=== PATIENT | male | born 1945 | race Hispanic/Latino ===

== ENCOUNTER 2021-02-25 16:12 | Inpatient (IN) | payer OTHER ==
[~2021-02-25] VITALS: Ht 172.7 cm; Wt 111.4 kg
[2021-02-25 17:02] LABS: BASOPHILS % (AUTO) 0.4 % (0.0-5.0); EOSINOPHILS % (AUTO) 1.6 % (0.0-8.0); HEMATOCRIT 34.9 % (42-54); LYMPHOCYTES % (AUTO) 13.8 % (21.0-51.0); MEAN CORPUSCULAR HEMOGLOBIN 29.1 pg (27.0-33.0); MEAN CORPUSCULAR HGB CONC 31.2 g/dL (32.0-36.0); MEAN CORPUSCULAR VOLUME 93.1 fL (79-99); MONOCYTES % (AUTO) 9.2 % (3.0-13.0); NEUTROPHILS % (AUTO) 74.2 % (40.0-77.0); PLATELET COUNT (AUTO) 183 K/uL (130-400); RED BLOOD CELL COUNT(AUTO) 3.75 MIL/uL (4.50-6.20); RED CELL DISTRIBUTION WIDTH 15.5 % (11.0-15.5); WHITE BLOOD COUNT (AUTO) 9.5 K/uL (4.8-10.8)
[2021-02-25 17:16] LABS: CREATININE 1.1 mg/dL (0.5-1.5); POTASSIUM 3.8 mmol/L (3.5-5.1)
[2021-02-25 17:18] LABS: INR 1.06 (0.85-1.15); PROTHROMBIN TIME 11.5 SEC (9.6-11.6)
[2021-02-25 17:20] LABS: PARTIAL THROMBOPLASTIN TIME 26.5 SEC (26.3-35.5)
[2021-02-25 17:25] LABS: ALBUMIN 3.2 g/dL (3.5-5.0); BILIRUBIN,TOTAL 0.4 mg/dL (0.2-1.0); MAGNESIUM 1.8 mg/dL (1.80-2.40); TOTAL PROTEIN, SERUM 6.9 g/dL (6.0-8.3)
[2021-02-25] MEDS ORDERED: DILTIAZEM 50MG VIAL IV SCH (17:30)
[2021-02-25 17:32] LABS: B-TYPE NATRIURETIC PEPTIDE 24 pg/mL (0-100)
[2021-02-25] MEDS ORDERED: FERS325 PO (19:54)
[2021-02-25] MEDS ORDERED: LOSA25TA41 PO (19:54)
[2021-02-25] MEDS ORDERED: PRED5DRO25 OS (19:54)
[2021-02-25] MEDS ORDERED: LOPE2TAB26 PO (19:54)
[2021-02-25] MEDS ORDERED: ASPI-1197 PO (19:54)
[2021-02-25] MEDS ORDERED: MIRT45TA83 PO (19:54)
[2021-02-25] MEDS ORDERED: GLIP10TA9 PO (19:54)
[2021-02-25] MEDS ORDERED: TAMS-1 PO (19:54)
[2021-02-25] MEDS ORDERED: OMEP40CA21 PO (19:54)
[2021-02-25] MEDS ORDERED: METO-408 PO (19:54)
[2021-02-25] MEDS ORDERED: PREG150C46 PO (19:54)
[2021-02-25] MEDS ORDERED: MELA1TAB28 PO (19:54)
[2021-02-25] MEDS ORDERED: KETO.5OS OS (19:54)
[2021-02-25] MEDS ORDERED: OXYB5TAB15 PO (19:54)
[2021-02-25] MEDS ORDERED: TORS20TA4 PO (19:54)
[2021-02-25] MEDS ORDERED: METF-446 PO (19:54)
[2021-02-25] MEDS ORDERED: ROSU40TA21 PO (19:54)
[2021-02-25] MEDS ORDERED: FINA5TAB41 PO (19:54)
[2021-02-25] MEDS ORDERED: POTASSIUM CHLORIDE 10% ELIXIR 20 MEQ/15 ML UDCUP PO PRN (21:30)
[2021-02-25] MEDS ORDERED: POTASSIUM CHLORIDE 20MEQ/100ML 100 ML IV PRN (21:30)
[2021-02-25] MEDS ORDERED: LIDOCAINE HCL-MPF 1% 2ML VIAL IV PRN (21:30)
[2021-02-25] MEDS ORDERED: ONDANSETRON 4MG INJ IV PRN (21:30)
[2021-02-25 23:21] LABS: POTASSIUM 3.8 mmol/L (3.5-5.1)
[2021-02-25] MEDS ORDERED: TRAZODONE HCL 50 MG TAB PO SCH (23:30)
[2021-02-26] VITALS (8 sets, daily range): BP systolic 98–146; BP diastolic 62–91
[2021-02-26] MEDS: INSULIN HUMULIN R 100 UNIT/ML 3ML SQ SCH ×4 (07:30→20:36)
[2021-02-26 08:22] LABS: BASOPHILS % (AUTO) 0.7 % (0.0-5.0); EOSINOPHILS % (AUTO) 1.7 % (0.0-8.0); HEMATOCRIT 36.7 % (42-54); MEAN CORPUSCULAR HEMOGLOBIN 29.2 pg (27.0-33.0); MEAN CORPUSCULAR HGB CONC 31.3 g/dL (32.0-36.0); MEAN CORPUSCULAR VOLUME 93.1 fL (79-99); MONOCYTES % (AUTO) 8.9 % (3.0-13.0); NEUTROPHILS % (AUTO) 71.1 % (40.0-77.0); PLATELET COUNT (AUTO) 191 K/uL (130-400); RED BLOOD CELL COUNT(AUTO) 3.94 MIL/uL (4.50-6.20); RED CELL DISTRIBUTION WIDTH 15.7 % (11.0-15.5); WHITE BLOOD COUNT (AUTO) 8.4 K/uL (4.8-10.8)
[2021-02-26] MEDS ORDERED: FAMOTIDINE 20MG TAB PO SCH (09:00)
[2021-02-26] MEDS ORDERED: LOSARTAN 25 MG TABLET PO SCH (09:00)
[2021-02-26] MEDS: PREDNISOLONE 1% DROPS OS SCH ×4 (09:00→20:54)
[2021-02-26] MEDS: FUROSEMIDE 40MG VIAL IVP SCH ×2 (09:11→20:35)
[2021-02-26] MEDS: PANTOPRAZOLE 40 MG TAB DR PO SCH (09:12)
[2021-02-26] MEDS: OXYBUTYNIN CHLORIDE 5 MG TABLET PO SCH ×3 (09:12→20:36)
[2021-02-26] MEDS: FERROUS SULFATE 325 MG TABLET.DR PO SCH (09:12)
[2021-02-26] MEDS: METOPROLOL TARTRATE 25 MG TAB PO SCH ×2 (09:12→20:36)
[2021-02-26] MEDS: ASPIRIN 81MG CHEW TAB PO SCH (09:12)
[2021-02-26] MEDS: ENOXAPARIN SODIUM 40 MG/0.4 ML SYRINGE SQ SCH (09:13)
[2021-02-26] MEDS: FINASTERIDE 5 MG TABLET PO SCH (09:13)
[2021-02-26] MEDS: TAMSULOSIN HCL 0.4 MG CAP.ER.24H PO SCH (09:13)
[2021-02-26 09:33] LABS: HEMOGLOBIN A1C 7.4 % (4.0-6.0)
[2021-02-26 09:59] LABS: MAGNESIUM 2.2 mg/dL (1.80-2.40); PHOSPHORUS 2.8 mg/dL (2.5-4.9); THYROID STIMULATING HORMONE 1.67 uIU/mL (0.36-3.74)
[2021-02-26] MEDS ORDERED: DILTIAZEM 125 MG/25 ML INJ 125 MG in 0.9%NACL 100ML 100 ML IV PRN (10:30)
[2021-02-26] MEDS ORDERED: DILTIAZEM 25MG INJ IVP PRN ×2 (10:30→11:30)
[2021-02-26] MEDS ORDERED: PHARMACY COMMUNICATION MISC SCH (11:30)
[2021-02-26] MEDS: DILTIAZEM 125 MG/25 ML INJ 125 MG in 0.9%NACL 100ML 100 ML IV PRN (12:00)
[2021-02-26] MEDS: PREGABALIN 100 MG CAPSULE PO SCH ×2 (12:15→20:36)
[2021-02-26 12:56] LABS: CREATININE 1.1 mg/dL (0.5-1.5); MAGNESIUM 1.9 mg/dL (1.80-2.40); POTASSIUM 3.7 mmol/L (3.5-5.1)
[2021-02-26 20:22] LABS: POTASSIUM 3.5 mmol/L (3.5-5.1)
[2021-02-26] MEDS: MIRTAZAPINE 15 MG TABLET PO SCH (20:35)
[2021-02-26] MEDS: PYRIDOXINE PO SCH (20:36)
[2021-02-26] MEDS: ATORVASTATIN 40 MG TABLET PO SCH (20:36)
[2021-02-26] MEDS: MELATONIN PO SCH (20:36)
[2021-02-27] VITALS (7 sets, daily range): BP systolic 92–146; BP diastolic 53–75
[2021-02-27] MEDS: PREGABALIN 75 MG CAPSULE PO SCH ×2 (01:00→21:43)
[2021-02-27 04:46] LABS: BASOPHILS % (AUTO) 0.5 % (0.0-5.0); HEMATOCRIT 34.8 % (42-54); LYMPHOCYTES % (AUTO) 14.8 % (21.0-51.0); MEAN CORPUSCULAR HEMOGLOBIN 28.7 pg (27.0-33.0); MEAN CORPUSCULAR VOLUME 92.6 fL (79-99); MONOCYTES % (AUTO) 9.2 % (3.0-13.0); NEUTROPHILS % (AUTO) 73.7 % (40.0-77.0); PLATELET COUNT (AUTO) 194 K/uL (130-400); RED BLOOD CELL COUNT(AUTO) 3.76 MIL/uL (4.50-6.20); RED CELL DISTRIBUTION WIDTH 15.9 % (11.0-15.5); WHITE BLOOD COUNT (AUTO) 10.7 K/uL (4.8-10.8)
[2021-02-27 06:24] LABS: CREATININE 1.1 mg/dL (0.5-1.5); MAGNESIUM 1.8 mg/dL (1.80-2.40); POTASSIUM 3.4 mmol/L (3.5-5.1)
[2021-02-27] MEDS: INSULIN HUMULIN R 100 UNIT/ML 3ML SQ SCH ×4 (06:30→20:40)
[2021-02-27] MEDS: KCL 20 MEQ ERTAB PO PRN ×2 (06:44→12:26)
[2021-02-27] MEDS: ENOXAPARIN SODIUM 40 MG/0.4 ML SYRINGE SQ SCH (08:32)
[2021-02-27] MEDS: PREGABALIN 100 MG CAPSULE PO SCH ×2 (08:36→20:29)
[2021-02-27] MEDS: OXYBUTYNIN CHLORIDE 5 MG TABLET PO SCH ×3 (08:36→20:30)
[2021-02-27] MEDS: METOPROLOL TARTRATE 25 MG TAB PO SCH ×2 (08:36→20:30)
[2021-02-27] MEDS: FINASTERIDE 5 MG TABLET PO SCH (08:36)
[2021-02-27] MEDS: ASPIRIN 81MG CHEW TAB PO SCH (08:36)
[2021-02-27] MEDS: PANTOPRAZOLE 40 MG TAB DR PO SCH (08:36)
[2021-02-27] MEDS: TAMSULOSIN HCL 0.4 MG CAP.ER.24H PO SCH (08:36)
[2021-02-27] MEDS: FUROSEMIDE 40MG VIAL IVP SCH (08:37)
[2021-02-27] MEDS: PREDNISOLONE 1% DROPS OS SCH ×4 (09:00→21:00)
[2021-02-27] MEDS ORDERED: MAGNESIUM 2GM PREMIX 50ML 50 ML IV SCH (09:00)
[2021-02-27] MEDS: DILTIAZEM 125 MG/25 ML INJ 125 MG in 0.9%NACL 100ML 100 ML IV PRN (09:19)
[2021-02-27] MEDS ORDERED: LIDOCAINE 5% TOPICAL PATCH TP SCH (11:00)
[2021-02-27] MEDS: 0.9%NACL 1000ML 1,000 ML IV SCH ×3 (12:19→17:27)
[2021-02-27] MEDS ORDERED: DILTIAZEM 180MG SR CAP PO SCH (13:00)
[2021-02-27] MEDS: DILTIAZEM 180MG SR CAP PO SCH (13:24)
[2021-02-27] MEDS: PYRIDOXINE PO SCH (20:29)
[2021-02-27] MEDS: MELATONIN PO SCH (20:29)
[2021-02-27] MEDS: ATORVASTATIN 40 MG TABLET PO SCH (20:29)
[2021-02-27] MEDS: MIRTAZAPINE 15 MG TABLET PO SCH (20:29)
[2021-02-28] VITALS (7 sets, daily range): BP systolic 108–132; BP diastolic 54–79
[2021-02-28] MEDS: ATORVASTATIN 40 MG TABLET PO SCH ×2 (01:00→21:08)
[2021-02-28] MEDS: OXYBUTYNIN CHLORIDE 5 MG TABLET PO SCH ×5 (01:00→21:08)
[2021-02-28] MEDS: METOPROLOL TARTRATE 25 MG TAB PO SCH ×3 (01:00→21:08)
[2021-02-28] MEDS: MIRTAZAPINE 15 MG TABLET PO SCH ×2 (01:00→21:10)
[2021-02-28] MEDS: INSULIN HUMULIN R 100 UNIT/ML 3ML SQ SCH ×4 (06:13→21:00)
[2021-02-28] MEDS: DILTIAZEM 180MG SR CAP PO SCH (07:54)
[2021-02-28 08:22] LABS: BILIRUBIN,DIRECT 0.2 mg/dL (0.0-0.3); BILIRUBIN,TOTAL 0.5 mg/dL (0.2-1.0); TOTAL PROTEIN, SERUM 6.6 g/dL (6.0-8.3)
[2021-02-28 08:32] LABS: MAGNESIUM 2.1 mg/dL (1.80-2.40); POTASSIUM 3.3 mmol/L (3.5-5.1)
[2021-02-28] MEDS: PREDNISOLONE 1% DROPS OS SCH ×5 (09:00→21:11)
[2021-02-28] MEDS: FERROUS SULFATE 325 MG TABLET.DR PO SCH (09:00)
[2021-02-28] MEDS: REGADENOSON 0.4 MG/5 ML PF SYG IVP SCH ×2 (10:30→12:28)
[2021-02-28] MEDS: PREGABALIN 75 MG CAPSULE PO SCH ×2 (12:56→21:09)
[2021-02-28] MEDS: ASPIRIN 81MG CHEW TAB PO SCH (12:56)
[2021-02-28] MEDS: FINASTERIDE 5 MG TABLET PO SCH (12:57)
[2021-02-28] MEDS: TAMSULOSIN HCL 0.4 MG CAP.ER.24H PO SCH (12:57)
[2021-02-28] MEDS: PANTOPRAZOLE 40 MG TAB DR PO SCH (12:57)
[2021-02-28] MEDS: ENOXAPARIN SODIUM 40 MG/0.4 ML SYRINGE SQ SCH (12:58)
[2021-02-28] MEDS: MELATONIN PO SCH (21:00)
[2021-02-28] MEDS: PYRIDOXINE PO SCH (21:00)
[2021-02-28] MEDS: KCL 20 MEQ ERTAB PO PRN ×2 (21:09→23:31)
[2021-03-01] VITALS: BP 119/60
[2021-03-01] MEDS: KCL 20 MEQ ERTAB PO PRN (01:31)
[2021-03-01 04:00] VITALS: BP 122/69
[2021-03-01 04:34] LABS: CREATININE 1.3 mg/dL (0.5-1.5)
[2021-03-01] MEDS: INSULIN HUMULIN R 100 UNIT/ML 3ML SQ SCH ×3 (06:36→16:30)
[2021-03-01 08:41] VITALS: BP 137/62
[2021-03-01] MEDS ORDERED: APIXABAN 5 MG TABLET PO SCH (09:00)
[2021-03-01] MEDS: PREDNISOLONE 1% DROPS OS SCH ×3 (09:00→17:00)
[2021-03-01] MEDS: PANTOPRAZOLE 40 MG TAB DR PO SCH (09:01)
[2021-03-01] MEDS: ASPIRIN 81MG CHEW TAB PO SCH (09:01)
[2021-03-01] MEDS: FINASTERIDE 5 MG TABLET PO SCH (09:01)
[2021-03-01] MEDS: METOPROLOL TARTRATE 25 MG TAB PO SCH (09:02)
[2021-03-01] MEDS: DILTIAZEM 180MG SR CAP PO SCH (09:02)
[2021-03-01] MEDS: TAMSULOSIN HCL 0.4 MG CAP.ER.24H PO SCH (09:03)
[2021-03-01] MEDS: PREGABALIN 75 MG CAPSULE PO SCH (09:03)
[2021-03-01] MEDS: OXYBUTYNIN CHLORIDE 5 MG TABLET PO SCH ×2 (09:08→14:16)
[2021-03-01 12:26] VITALS: BP 114/61
[2021-03-01 16:45] VITALS: BP 131/59
[2021-03-01] MEDS ORDERED: DILT180C63 PO (17:21)
[2021-03-01] MEDS ORDERED: METO-391 PO (17:21)
[2021-03-01] MEDS ORDERED: APIX5TAB PO (17:21)
== END 2021-03-01 20:50 | disposition home or self-care (01) | DRG 309 ==
LOC: EDH 16:12 → EDHIP 21:19 → 4BH 02-26 08:20 → 4CH 02-26 17:17
PROVIDERS: ADMIT Internal Medicine; ATTEND Internal Medicine
DX: I48.92 Unspecified atrial flutter (principal); D68.59 Other primary thrombophilia; E11.42 Type 2 diabetes mellitus with diabetic polyneuropathy; I10 Essential (primary) hypertension; E78.5 Hyperlipidemia, unspecified; I48.91 Unspecified atrial fibrillation; E87.6 Hypokalemia; I25.10 Atherosclerotic heart disease of native coronary artery without angina pectoris; I25.2 Old myocardial infarction; Z87.891 Personal history of nicotine dependence; Z95.5 Presence of coronary angioplasty implant and graft; Z88.8 Allergy status to other drugs, medicaments and biological substances; Z79.899 Other long term (current) drug therapy
CPT/HCPCS: 36415; 70450; 71045; 78452; 80048; 80053; 80076; 82948; 83036; 83735; 83880; 84100; 84443; 84484; 85025; 85610; 85730; 93005; 93017; 93306; 93356; 96374; 97039; 99291; A9500; G0378; J1650; J1815; J1940; J2785; J3475; J3490; J7510

== ENCOUNTER → 2021-06-22 | Outpatient (CLI) | payer OTHER ==
[~2021-06-22] VITALS: Ht 177.8 cm; Wt 102.4 kg
[~2021-06-22] MED LIST: 0.9% NACL 500ML IV.SOLN 500 ML IV SCH; APIX5TAB PO; ASPI-1197 PO; BUPIVACAINE/PF 0.25% 30ML VIAL IJ ONE; CEFAZOLIN SODIUM 1 GM VIAL ONE; DILT180C63 PO; FERS325 PO; FINA5TAB41 PO; GLIP10TA9 PO; KETO.5OS OS; LIDOCAINE HCL 1% MDV 50ML VIAL ONE; LOPE2TAB26 PO; LOSA25TA41 PO; MELA1TAB28 PO; MEPERIDINE-PF 50 MG/ML SYG ONE; METF-446 PO; METO-391 PO; MIDAZOLAM HCL 1 MG/ML 2ML VIAL ONE; MIRT45TA83 PO; OMEP40CA21 PO; OXYB5TAB15 PO; PRED5DRO25 OS; PREG150C46 PO; ROSU40TA21 PO; TAMS-1 PO
[2021-06-22 14:26] LABS: BASOPHILS % (AUTO) 0.4 % (0.0-5.0); EOSINOPHILS % (AUTO) 3.3 % (0.0-8.0); HEMATOCRIT 29.6 % (42-54); LYMPHOCYTES % (AUTO) 20.9 % (21.0-51.0); MEAN CORPUSCULAR HGB CONC 29.7 g/dL (32.0-36.0); MEAN CORPUSCULAR VOLUME 94.3 fL (79-99); MONOCYTES % (AUTO) 7.9 % (3.0-13.0); NEUTROPHILS % (AUTO) 66.5 % (40.0-77.0); PLATELET COUNT (AUTO) 152 K/uL (130-400); RED BLOOD CELL COUNT(AUTO) 3.14 MIL/uL (4.50-6.20); RED CELL DISTRIBUTION WIDTH 17.2 % (11.0-15.5); WHITE BLOOD COUNT (AUTO) 9.9 K/uL (4.8-10.8)
[2021-06-22 14:37] LABS: POTASSIUM 4.2 mmol/L (3.5-5.1)
[2021-06-22 15:09] LABS: INR 1.15 (0.85-1.15); PROTHROMBIN TIME 12.4 SEC (9.6-11.6)
[2021-06-22 15:10] LABS: PARTIAL THROMBOPLASTIN TIME 33.1 SEC (26.3-35.5)
[2021-06-22 16:21] VITALS: BP 123/59
== END | disposition home or self-care (01) ==
LOC: DAH 10:00 → EDSTATUS 13:00
PROVIDERS: ATTEND Internal Medicine Cardiovascular Disease
DX: Z01.810 Encounter for preprocedural cardiovascular examination (principal); Z20.822 Contact with and (suspected) exposure to COVID-19; I48.3 Typical atrial flutter; Z79.01 Long term (current) use of anticoagulants
CPT/HCPCS: 36415; 80048; 85025; 85610; 85730; 87635; 93005; C9803; J0690; J2175; J2250; J3490